=== PATIENT | female | born 1995 | race Caucasian/White ===

== ENCOUNTER 2016-12-18 09:40 | Emergency (ER) | payer SELFPAY ==
--- NOTE | 2016-12-18 10:15 | ED ---
General Adult HPI - General Chief complaint: Upper Respiratory Infection Stated complaint: cough Time Seen by Provider: 12/18/16 10:09 Source: patient, RN notes reviewed Mode of arrival: ambulatory Limitations: no limitations - History of Present Illness Initial comments: Patient 21-year-old female who presents emergency room today with chief complaint of sore throat 3 weeks. He admits that hurts when she swallows. Does admit to cough congestion. Admits to history of asthma. States she recently moved to the area is been out of her medications of inhaler and breathing treatments. Patient denies any other complaints or associated symptoms. Patient denies any recent fever, chills, shortness of breath, chest pain, back pain, abdominal pain, nausea or vomiting, numbness or tingling, dysuria or hematuria, constipation or diarrhea, headaches or visual changes, or any other complaints. - Related Data Previous Rx's Medication Instructions Recorded Albuterol Inhaler [Ventolin Hfa 1 - 2 puff INHALATION Q4-6H PRN #1 12/18/16 Inhaler] inhaler guaiFENesin 400 mg PO Q4-6H #30 tablet 12/18/16 Allergies Allergy/AdvReac Type Severity Reaction Status Date / Time coconut Allergy Unknown Verified 12/18/16 10:10 Review of Systems ROS Statement: Those systems with pertinent positive or pertinent negative responses have been documented in the HPI. ROS Other: All systems not noted in ROS Statement are negative. Past Medical History Past Medical History: Asthma History of Any Multi-Drug Resistant Organisms: None Reported Past Surgical History: No Surgical Hx Reported Past Psychological History: No Psychological Hx Reported Smoking Status: Current every day smoker Past Alcohol Use History: None Reported Past Drug Use History: Marijuana General Exam - General Exam Comments Initial Comments: General: The patient is awake and alert, in no distress, and does not appear acutely ill. Eye: Pupils are equal, round and reactive to light, extra-ocular movements are intact. No nystagmus. There is normal conjunctiva bilaterally. No signs of icterus. Ears, nose, mouth and throat: There are moist mucous membranes and no oral lesions. Mild redness to the posterior pharynx. Neck: The neck is supple, there is no tenderness or JVD. Cardiovascular: There is a regular rate and rhythm. No murmur, rub or gallop is appreciated. Respiratory: Lungs are clear to auscultation, respirations are non-labored, breath sounds are equal. No wheezes, stridor, rales, or rhonchi. Musculoskeletal: Normal ROM, no tenderness. Strength 5/5. Sensation intact. Pulses equal bilaterally 2+. Neurological: A&O x 3. CN II-XII intact, There are no obvious motor or sensory deficits. Coordination appears grossly intact. Speech is normal. Skin: Skin is warm and dry and no rashes or lesions are noted. Psychiatric: Cooperative, appropriate mood & affect, normal judgment. Limitations: no limitations Course Vital Signs 12/18/16 12/18/16 09:43 09:56 Temperature 97.8 F Pulse Rate 102 H Respiratory 20 20 Rate Blood Pressure 140/84 O2 Sat by Pulse 100 Oximetry Medical Decision Making - Medical Decision Making Patient's x-ray reviewed no sign of pneumonia. No other acute abnormalities. Results were discussed with patient. Patient's strep test negative. Patient was most likely viral illness. Does have history of asthma. Will be written a prescription for albuterol inhaler with cough medication. Advised follow-up family doctor return here to the emergency room if any symptoms increase or worsen or for new concerns. - Lab Data Lab Results 12/18/16 Range/Units 10:23 Group A Strep Rapid Negative (Negative) Disposition Clinical Impression: Upper respiratory infection Disposition: HOME SELF-CARE Condition: Good Instructions: Upper Respiratory Infection (ED) Additional Instructions: Please use medication as discussed. Please follow-up with family doctor in the next 2 days of symptoms have not improved. Please return to emergency room if the symptoms increase or worsen or for any other concerns. Prescriptions: Albuterol Inhaler [Ventolin Hfa Inhaler] 1 - 2 puff INHALATION Q4-6H PRN #1 inhaler PRN Reason: Cough guaiFENesin 400 mg PO Q4-6H #30 tablet Referrals: None,Stated [Primary Care Provider] - 1-2 days Angela Moore MD [REFERRING] - 1-2 days Time of Disposition: 11:05
--- NOTE | 2016-12-18 10:45 | XR ---
EXAMINATION TYPE: XR chest 2V DATE OF EXAM: 12/18/2016 10:35 AM COMPARISON: NONE TECHNIQUE: PA and lateral views submitted. HISTORY: Cough FINDINGS: The lungs are clear and there is no pneumothorax, pleural effusion, or focal pneumonia. IMPRESSION: 1. No acute process.
[2016-12-18 17:43] VITALS: BP 139/68; PULSE 78; RESP 18; TEMP 98.4
== END 2016-12-18 11:37 | disposition home or self-care (01) ==
LOC: EC 09:40
DX: J06.9 Acute upper respiratory infection, unspecified (principal); Z91.018 Allergy to other foods; F17.200 Nicotine dependence, unspecified, uncomplicated
CPT/HCPCS: 71020; 87081; 87430; 99283

== ENCOUNTER 2017-01-30 21:31 | Emergency (ER) | payer OTHER ==
[2017-01-30 21:35] VITALS: BP 137/69; PULSE 90; RESP 18; TEMP 97.9
--- NOTE | 2017-01-30 21:54 | ED ---
Upper Extremity HPI - General Chief Complaint: Extremity Injury, Upper Stated Complaint: rt wrist injury Time Seen by Provider: 01/30/17 21:38 Source: patient, RN notes reviewed Mode of arrival: ambulatory Limitations: no limitations - History of Present Illness Initial Comments: Patient is a 21-year-old female presents to the emergency room for evaluation of right wrist pain. Patient states a few days ago she was punching objects and began having wrist pain afterwards. Patient states throughout the past few days she's been having on and off swelling and bruising of her right wrist. Patient states she has pain whenever she lifts heavy objects or moves her wrist. Patient states she is having some pain in her knuckles as well. Patient denies numbness or tingling in her fingers. Patient denies any other injuries or complaints. - Related Data Home Medications Medication Instructions Recorded Confirmed ARIPiprazole [Abilify] 5 mg PO DAILY 01/30/17 01/30/17 Omeprazole 40 mg PO DAILY 01/30/17 01/30/17 busPIRone HCl [Buspar] 10 mg PO BID 01/30/17 01/30/17 Allergies Allergy/AdvReac Type Severity Reaction Status Date / Time coconut Allergy Rash/Hives Verified 01/30/17 21:42 Review of Systems ROS Statement: Those systems with pertinent positive or pertinent negative responses have been documented in the HPI. ROS Other: All systems not noted in ROS Statement are negative. Past Medical History Past Medical History: Asthma History of Any Multi-Drug Resistant Organisms: None Reported Past Surgical History: No Surgical Hx Reported Past Psychological History: No Psychological Hx Reported Smoking Status: Current every day smoker Past Alcohol Use History: None Reported Past Drug Use History: Marijuana General Exam - General Exam Comments Initial Comments: Sitting in exam room, no acute distress. Limitations: no limitations General appearance: alert, in no apparent distress Head exam: Present: atraumatic, normocephalic, normal inspection Eye exam: Present: normal appearance ENT exam: Present: normal exam Neck exam: Present: normal inspection Respiratory exam: Absent: respiratory distress Right Forearm Wrist exam: Present: full ROM, tenderness (Distal ulna), swelling ( Swelling and ecchymosis over distal ulna) Hand Wrist exam: Present: full ROM, tenderness (Tenderness on palpating over fourth and fifth MCP joints) Vascular: Present: normal capillary refill (Capillary refill less than 2 seconds ), radial pulse (2+), ulnar pulse (2+) Back exam: Present: normal inspection Neurological exam: Present: alert, oriented X3, CN II-XII intact, normal gait Psychiatric exam: Present: normal affect, normal mood Skin exam: Present: warm, dry, intact, normal color. Absent: rash Course Vital Signs 01/30/17 21:33 Temperature 97.9 F Pulse Rate 90 Respiratory 18 Rate Blood Pressure 137/69 O2 Sat by Pulse 99 Oximetry Procedures - Orthopedic Splinting/Casting Injury #1 Side: right Upper Extremity Injury Location: wrist Upper Extremity Immobilizer: Robbin wrap Medical Decision Making - Medical Decision Making Patient is a 21-year-old female presents emergency room for evaluation of right wrist pain. Right wrist/hand x-ray shows no acute fractures or dislocations. Patient placed in an Robbin wrap. Advised patient to follow-up with her primary care provider if symptoms are not improving in 7-10 days. Patient states she understands everything that was discussed with her. Return parameters discussed. Case discussed Dr. Augustin. - Radiology Data Radiology results: report reviewed, image reviewed Disposition Clinical Impression: Right wrist sprain Disposition: HOME SELF-CARE Condition: Good Instructions: Wrist Sprain (ED) Additional Instructions: Ice on and off for 10-15 minutes for the next 24-48 hours. Tylenol or Motrin as needed for pain. Please follow-up with primary care provider is 7-10 days if symptoms are not improving. If new symptoms develop or symptoms worsen, please return to the ER. Referrals: Dennise Mo MD [Primary Care Provider] - 1-2 days Time of Disposition: 22:18
--- NOTE | 2017-01-30 22:05 | XR ---
EXAMINATION TYPE: XR hand complete RT DATE OF EXAM: 01/30/2017 9:58 PM COMPARISON: NONE HISTORY: Pain TECHNIQUE: 3 views FINDINGS: I see no fracture nor dislocation. Metacarpals appear intact. IMPRESSION: Negative right hand exam.
--- NOTE | 2017-01-30 22:06 | XR ---
EXAMINATION TYPE: XR wrist complete RT DATE OF EXAM: 01/30/2017 9:59 PM COMPARISON: NONE HISTORY: Pain TECHNIQUE: 4 views FINDINGS: I see no fracture nor dislocation. Carpal bones appear intact. IMPRESSION: Negative right wrist exam.
== END 2017-01-30 22:43 | disposition home or self-care (01) ==
LOC: EC 21:31
DX: S63.501A Unspecified sprain of right wrist, initial encounter (principal); F17.200 Nicotine dependence, unspecified, uncomplicated; Z79.899 Other long term (current) drug therapy; Z91.018 Allergy to other foods; W22.8XXA Striking against or struck by other objects, initial encounter
CPT/HCPCS: 99283

== ENCOUNTER 2017-02-02 10:34 | Emergency (ER) | payer OTHER ==
[2017-02-02 10:40] VITALS: RESP 16
--- NOTE | 2017-02-02 11:44 | ED ---
General Adult HPI - General Chief complaint: Wound/Laceration Stated complaint: laceration Time Seen by Provider: 02/02/17 10:42 Source: patient, RN notes reviewed, old records reviewed Mode of arrival: ambulatory Limitations: no limitations - History of Present Illness Initial comments: 21-year-old female with history of bipolar depression presenting for lacerations to her anterior thighs. Patient states that she has a history of cutting herself related to stress and anxiety. She states that today she felt stressed out and cut herself with a razor blade multiple times on both thighs. States that she took her medication after that and now she is feeling improved. She denies any suicidal ideations. She states that she cut herself too deep on one of the wounds so she came to the emergency room to get the laceration evaluated. States that she recently switched psychiatrists about a week ago and was restarted on her medications 5 days ago. She states that she is compliant with these medications. She states his follow-up appointment later this week. - Related Data Home Medications Medication Instructions Recorded Confirmed ARIPiprazole [Abilify] 5 mg PO DAILY 01/30/17 02/02/17 Omeprazole 40 mg PO DAILY 01/30/17 02/02/17 busPIRone HCl [Buspar] 10 mg PO BID 01/30/17 02/02/17 Allergies Allergy/AdvReac Type Severity Reaction Status Date / Time coconut Allergy Rash/Hives Verified 02/02/17 11:02 Review of Systems ROS Statement: Those systems with pertinent positive or pertinent negative responses have been documented in the HPI. ROS Other: All systems not noted in ROS Statement are negative. Past Medical History Past Medical History: Asthma History of Any Multi-Drug Resistant Organisms: None Reported Past Surgical History: No Surgical Hx Reported Past Psychological History: Anxiety, Bipolar, Depression Smoking Status: Current every day smoker Past Alcohol Use History: None Reported Past Drug Use History: Marijuana General Exam - General Exam Comments Initial Comments: General: Awake and Alert. No acute distress. Does not appear acutely ill. Eyes: RACHEL, EOM intact. No nystagmus. No scleral icterus. HENT: Atraumatic, normocephalic. Mucous membranes moist. Trachea midline. Neck: The neck is supple, there is no tenderness or JVD. Cardiovascular: Regular rate and rhythm. No murmur, rub, or gallop is appreciated. Distal pulses intact. Respiratory: Lungs are clear to auscultation bilaterally. No wheezes, rales, rhonchi. No respiratory distress. Gastrointestinal: Soft, Nontender. No rebound or guarding. Non-distended. No masses or organomegaly noted. No CVA tenderness. Musculoskeletal: No tenderness. Normal ROM. No gross deformity. No strength deficits. Neurological: A&Ox3. CN II-XII grossly intact, There are no obvious motor or sensory deficits. Coordination appears grossly intact. Speech is normal. Skin: There are multiple horizontal lacerations to bilateral anterior thigh. The right anterior thigh has a deeper laceration that is approximately 5 cm x 0.5 cm. There are also areas of scabbed over prior lacerations to the same area. Skin is warm and dry and no rashes are noted. Psychiatric: Cooperative, appropriate affect. Pt appears anxious. Denies suicidal ideations or plan. Limitations: no limitations Course Vital Signs 02/02/17 02/02/17 10:35 12:40 Temperature 99.8 F H 97.8 F Pulse Rate 113 H 82 Respiratory 16 16 Rate Blood Pressure 144/83 123/65 O2 Sat by Pulse 97 99 Oximetry Procedures - Laceration Laceration #1 Consent Obtained: verbal consent Time Out Performed: Yes Indication: laceration Site: lower extremity Size (cm): 5 Description: linear Depth: simple, single layer Anesthetic Used: lidocaine 1% Anesthesia Technique: local infiltration Amount (mls): 5 Type of Sutures: nylon Size of Sutures: 4-0 Number of Sutures: 8 Technique: simple, interrupted Patient Tolerated Procedure: no complications Medical Decision Making - Medical Decision Making 21-year-old female presenting for lacerations to anterior thighs bilaterally. His one larger laceration of the right anterior thigh which was repaired with 8 sutures. She tolerated this well. Remaining lacerations were more superficial but were closed with Dermabond. Discussed wound care instructions. Patient was asked multiple times if she is feeling suicidal or depressed, patient states she is not. She states she does not plan to cut again at this time. She states she was recently restarted on her medications. States she felt better after she took medications this morning. She was offered to meet with our bilingual social worker, but declines. Given that she is feeling improved at this time and is compliant with her medications, she does not appear to require petition/clinical certificate/psychiatric evaluation. Patient states she does have follow-up with her psychiatrist later this week. Discussed concerning signs symptoms for immediate return to the ER. Patient is agreeable with plan and discharge home. Disposition Clinical Impression: Laceration of thigh, Bipolar depression Disposition: HOME SELF-CARE Condition: Stable Instructions: Laceration (ED) Additional Instructions: Please keep wounds clean and dry. You may use topical antibiotic cream if they become red or irritated. Please follow up for removal of sutures in 1 week. If you become depress or feel like cutting again, please call 911 or your psychiatrist. Referrals: Dennise Mo MD [Primary Care Provider] - 1-2 days Time of Disposition: 12:13
[2017-02-02] MEDS ORDERED: TOPICAL SKIN ADHESIVE 1 EACH AMP TOPICAL ONE (12:01)
[2017-02-02 12:48] VITALS: BP 123/65; PULSE 82; TEMP 97.8
== END 2017-02-02 12:40 | disposition home or self-care (01) ==
LOC: EC 10:34
DX: S71.112A Laceration without foreign body, left thigh, initial encounter (principal); S71.111A Laceration without foreign body, right thigh, initial encounter; F31.9 Bipolar disorder, unspecified; F41.9 Anxiety disorder, unspecified; F17.200 Nicotine dependence, unspecified, uncomplicated; Z79.899 Other long term (current) drug therapy; Z91.018 Allergy to other foods; W45.8XXA Other foreign body or object entering through skin, initial encounter
CPT/HCPCS: 12002; 99283

== ENCOUNTER → 2017-03-02 | Day surgery (SDC) | payer OTHER ==
[2017-02-26 10:56] VITALS: BMI 23.6
[~2017-03-02] MED LIST: LACTATED RINGERS 1,000 ML IV SCH; LIDOCAINE 1% 20 ML VIAL (10MG/ML) FOR IV START INTRADERMA ONE; LIDOCAINE 1% INJ 10MG/ML (20 ML MDV) ONE; PROPOFOL 10 MG/ML 20 ML VIAL IV ONE
[2017-03-02 07:55] VITALS: TEMP 98
--- NOTE | 2017-03-02 08:58 | P.GSHP ---
History of Present Illness H&P Date: 03/02/17 Chief Complaint: Epigastric and right upper quadrant pain This is a 21-year-old female who presents today for EGD. She's had complaints of right quadrant and epigastric pain. - Constitutional Constitutional: Reports as per HPI Past Medical History Past Medical History: Asthma, Pulmonary Embolus (PE) Additional Past Medical History / Comment(s): persistant vomiting 1 1/2 yrs- daily, occ abdominal pain, History of Any Multi-Drug Resistant Organisms: None Reported Past Surgical History: Orthopedic Surgery Additional Past Surgical History / Comment(s): surgery left knee, Past Anesthesia/Blood Transfusion Reactions: No Reported Reaction Past Psychological History: Anxiety, Bipolar, Depression, Panic Disorder Smoking Status: Current every day smoker Past Alcohol Use History: None Reported Additional Past Alcohol Use History / Comment(s): has smoked since age 12, 1 1/ 2 PPD Past Drug Use History: Marijuana Additional Drug Use History / Comment(s): daily - Past Family History Mother Family Medical History: No Reported History Medications and Allergies Home Medications Medication Instructions Recorded Confirmed Type busPIRone HCl [Buspar] 10 mg PO BID 01/30/17 02/26/17 History ARIPiprazole [Abilify] 10 mg PO DAILY 02/26/17 02/26/17 History Albuterol Inhaler [Ventolin Hfa 1 - 2 puff INHALATION TID 02/26/17 03/02/17 History Inhaler] lamoTRIgine [LaMICtal] 100 mg PO DAILY 02/26/17 03/02/17 History Allergies Allergy/AdvReac Type Severity Reaction Status Date / Time coconut Allergy Rash/Hives, Verified 02/26/17 10:48 tongue swelling Surgical - Exam Vital Signs Temp Pulse Resp BP Pulse Ox 98.0 F 68 18 129/84 100 03/02/17 07:53 03/02/17 07:53 03/02/17 07:53 03/02/17 07:53 03/02/17 07:53 - General well developed, no distress - Eyes PERRL - ENT normal pinna - Neck no masses - Respiratory normal expansion - Cardiovascular Rhythm: regular - Abdomen Mild epigastric pain Abdomen: soft Assessment and Plan Plan: Epigastric right upper quadrant pain. We'll perform EGD to evaluate for gastritis.
--- NOTE | 2017-03-02 09:06 | P.OP ---
Date of Procedure: 03/02/17 Preoperative Diagnosis: Epigastric and right upper quadrant pain Postoperative Diagnosis: Mild gastritis Procedure(s) Performed: EGD Anesthesia: MAC Surgeon: Brain Peters Pathology: other (Antrum, esophagus) Condition: stable Disposition: PACU Description of Procedure: The patient's placed on the endoscopy table in the lateral position. She received IV sedation. The gastroscope placed oropharynx and passed in the esophagus and into the stomach. Scope was then placed through the pylorus. The first and second portion of the duodenum appeared normal. The scope was then brought back the antrum and this appeared mildly inflamed. A biopsy was performed. The scope was unretroflexed and remainder of the stomach appeared normal. There was no hiatal hernia. The GE junction was at 40 cm. The distal esophagus appeared minimally inflamed a biopsies was performed. The proximal esophagus appeared normal. Scope was withdrawn for patient.
[2017-03-02 09:40] VITALS: BP 137/60; PULSE 75; RESP 18
--- NOTE | 2017-03-02 13:11 | NM ---
EXAMINATION TYPE: NM hepatobiliary w EF DATE OF EXAM: 03/02/2017 12:33 PM COMPARISON: NONE HISTORY: Abdominal pain not further specified per order. Epigastric pain with diminished appetite, na usea, vomiting, and reflux-like symptoms. TECHNIQUE: After the intravenous administration of 5.5 mCi Tc 99m Mebrofenin hepatobiliary scintigrap hy is performed. Immediate images post injection. FINDINGS: There is satisfactory initial accumulation of tracer by the liver. The gallbladder is visualized wit hin 20 minutes. The small bowel activity is noted within 15 minutes. At one hour 8 ounces of oral e nsure plus is given to mimic CCK and gallbladder ejection fraction is calculated at 97 %, not diminis hed from the normal range. Therefore there is no scintigraphic evidence of cystic or common bile gonzales t obstruction to suggest acute cholecystitis. Some consider ejection fraction of 97% abnormal or a hy perkinetic response. IMPRESSION: Ejection fraction is 97%, some consider this abnormal or a hyperkinetic response. Clinica l correlation advised.
== END | disposition home or self-care (01) ==
LOC: ORWHC2ENDO 07:28
PROVIDERS: ATTEND Surgery
DX: K29.50 Unspecified chronic gastritis without bleeding (principal); K20.0 Eosinophilic esophagitis; J45.909 Unspecified asthma, uncomplicated; F17.200 Nicotine dependence, unspecified, uncomplicated; F41.9 Anxiety disorder, unspecified; F31.9 Bipolar disorder, unspecified; F32.9 Major depressive disorder, single episode, unspecified; F41.0 Panic disorder [episodic paroxysmal anxiety]; Z86.711 Personal history of pulmonary embolism; Z91.018 Allergy to other foods; Z79.899 Other long term (current) drug therapy
CPT/HCPCS: 81025; 88305; 88312; 88342; 78226; 43239; A9537; J2001; J2704

== ENCOUNTER 2017-03-27 06:15 | Day surgery (SDC) | payer OTHER ==
[2017-03-26 08:33] VITALS: BMI 25.5
[~2017-03-27 06:15] MED LIST changes: +DEXAMETHASONE SOD PHOSPHATE 10 MG/ML 1 ML VIAL IV ONE; +HEPARIN SODIUM,PORCINE 5,000 UNIT/ML 1 ML VIAL SQ ONE; -LIDOCAINE 1% 20 ML VIAL (10MG/ML) FOR IV START INTRADERMA ONE; +LIDOCAINE 1% 20 ML VIAL (10MG/ML) FOR IV START INTRADERMA PRN; -LIDOCAINE 1% INJ 10MG/ML (20 ML MDV) ONE; +MIDAZOLAM 2 MG/2 ML VIAL IV PRN; +ONDANSETRON 4 MG/2 ML VIAL IVP ONE; -PROPOFOL 10 MG/ML 20 ML VIAL IV ONE; +SCOPOLAMINE 1.5MG/72HR PATCH TRANSDERM ONE; +ceFAZolin 2 GM in SODIUM CHLORIDE 0.9% 100 ML IVPB ONE
[2017-03-27 06:37] VITALS: RESP 18
[2017-03-27] MEDS ORDERED: LACTATED RINGERS 1,000 ML IV ONE ×2 (06:44→10:33)
[2017-03-27] MEDS ORDERED: BUPIVACAIN-EPI 0.25%-1:200,000 30 ML VIAL SQ ONE (07:18)
--- NOTE | 2017-03-27 07:51 | P.GSHP ---
History of Present Illness H&P Date: 03/27/17 Chief Complaint: Right upper quadrant pain This a 19-year-old female referred from Dr. pyle. Patient presents today for laparoscopic cholecystectomy. She's had abdominal pain her HIDA scan shows abnormal ejection fraction consistent with chronic cholecystitis. Past Medical History Past Medical History: Asthma, Pulmonary Embolus (PE) Additional Past Medical History / Comment(s): persistant vomiting 1 1/2 yrs- daily, occ abdominal pain, History of Any Multi-Drug Resistant Organisms: None Reported Past Surgical History: Orthopedic Surgery Additional Past Surgical History / Comment(s): LEFT KNEE SURGERY WITH SCREWS, Past Anesthesia/Blood Transfusion Reactions: No Reported Reaction Past Psychological History: Anxiety, Bipolar, Depression, Panic Disorder Smoking Status: Current every day smoker Past Alcohol Use History: None Reported, Rare Additional Past Alcohol Use History / Comment(s): has smoked since age 12, SMOKES 1 1/2PPD Past Drug Use History: Marijuana Additional Drug Use History / Comment(s): daily - Past Family History Mother Family Medical History: No Reported History Medications and Allergies Home Medications Medication Instructions Recorded Confirmed Type busPIRone HCl [Buspar] 10 mg PO BID 01/30/17 03/26/17 History ARIPiprazole [Abilify] 10 mg PO DAILY 02/26/17 03/26/17 History Albuterol Inhaler [Ventolin Hfa 1 - 2 puff INHALATION TID PRN 02/26/17 03/27/17 History Inhaler] lamoTRIgine [LaMICtal] 100 mg PO BID 02/26/17 03/26/17 History Allergies Allergy/AdvReac Type Severity Reaction Status Date / Time coconut Allergy Rash/Hives, Verified 03/26/17 08:14 tongue swelling Surgical - Exam Vital Signs Temp Pulse Resp BP Pulse Ox 98.1 F 74 18 112/65 99 03/27/17 06:34 03/27/17 06:34 03/27/17 06:34 03/27/17 06:34 03/27/17 06:34 - General well developed, no distress - Eyes PERRL - ENT normal pinna - Neck no masses - Respiratory normal expansion - Cardiovascular Rhythm: regular - Abdomen Abdomen: soft, non tender Assessment and Plan Plan: Right upper quadrant pain Chronic cholecystis We'll perform laparoscopic cholecystectomy
[2017-03-27] MEDS ORDERED: GLYCOPYRROLATE 0.2 MG/ML 2 ML VIAL ONE (07:57)
[2017-03-27] MEDS ORDERED: NEOSTIGMINE 1 MG/ML 10 ML VIAL ONE (07:57)
[2017-03-27] MEDS ORDERED: KETOROLAC 30 MG/ML 1 ML VIAL ONE (07:57)
[2017-03-27] MEDS ORDERED: MIDAZOLAM 2 MG/2 ML VIAL ONE (07:57)
[2017-03-27] MEDS ORDERED: PROPOFOL 10 MG/ML 20 ML VIAL IV ONE (07:57)
[2017-03-27] MEDS ORDERED: SUCCINYLCHOLINE CHLORIDE 100 MG/5 ML SYR IV ONE (07:57)
[2017-03-27] MEDS ORDERED: ROCURONIUM BROMIDE 10 MG/ML 10 ML VIAL IV ONE (07:57)
[2017-03-27] MEDS ORDERED: HYDROmorphone (PF) 1 MG/ML ONE (07:57)
[2017-03-27] MEDS ORDERED: LIDOCAINE 1% INJ 10MG/ML (20 ML MDV) ONE (07:57)
[2017-03-27] MEDS ORDERED: fentaNYL (PF) 50 MCG/ML 2 ML AMP ONE (07:57)
--- NOTE | 2017-03-27 08:43 | P.OP ---
Date of Procedure: 03/27/17 Preoperative Diagnosis: Cholecystitis Postoperative Diagnosis: Cholecystitis Procedure(s) Performed: Laparoscopic cholecystectomy Implants: Anesthesia: VANCE Surgeon: Brain Peters Estimated Blood Loss (ml): 5 Pathology: other (Gallbladder) Condition: stable Disposition: PACU Indications for Procedure: Operative Findings: Description of Procedure: The patient was placed on the operating table. The patient received a general endotracheal tube anesthesia. The patients abdomen was prepped and draped in the usual sterile fashion. Through an infraumbilical stab incision, the fascia of the anterior abdominal wall was grasped with a pair of Kochers and then the Veress needle was placed in the peritoneal cavity. Position of the Veress needle was confirmed with positive drop test. The abdomen was then insufflated. After adequate insufflation, the 10 mm trocar was placed in the peritoneal cavity. Following this the laparoscope was placed in the peritoneal cavity. The patient was placed in the head-up, right side up position and then a 5 mm trocar was placed in the right lateral and right subcostal position under direct visualization. A 8 mm trocar was placed in the epigastric position. The gallbladder was grasped in the fundus and infundibulum. Traction on the gallbladder was placed in the lateral and the cephalad positions. The triangle of Calot was visualized.. The cystic duct was bluntly dissected until the union of the cystic duct and common bile duct was seen. The cystic duct was then divided and sealed with the Harmonic scissors. A PDS Endoloop was then placed throughout the cystic duct stump. The cystic artery divided and sealed with the Harmonic scissors. The gallbladder was then removed from the liver bed using Harmonic scissors. The gallbladder was then extracted through the epigastric port site. Operative field was checked for any bleeding spots and Harmonic scissors was used to coagulate the liver bed. The abdomen was irrigated. The trocars were removed. The skin was closed using interrupted 3-0 Vicryl suture. Dermabond dressing were applied. The patient tolerated the procedure well.
[2017-03-27 09:03] VITALS: TEMP 997.4
[2017-03-27] MEDS: HYDROmorphone 1 MG/ML 1 ML SYRINGE IVP PRN ×4 (09:10→09:35)
[2017-03-27] MEDS ORDERED: ONDANSETRON 4 MG/2 ML VIAL IVP ONE (09:26)
[2017-03-27 11:38] VITALS: BP 131/64; PULSE 71
== END 2017-03-27 12:03 | disposition home or self-care (01) ==
LOC: OR 06:15
PROVIDERS: ATTEND Surgery
DX: K81.1 Chronic cholecystitis (principal); K76.89 Other specified diseases of liver; J45.909 Unspecified asthma, uncomplicated; Z86.711 Personal history of pulmonary embolism; F41.9 Anxiety disorder, unspecified; F31.9 Bipolar disorder, unspecified; F41.0 Panic disorder [episodic paroxysmal anxiety]; F17.200 Nicotine dependence, unspecified, uncomplicated; Z79.899 Other long term (current) drug therapy; Z91.018 Allergy to other foods
CPT/HCPCS: 81025; 88304; 47562; J2250; J1644; J1100; J2710; J0690; J2405; J2001; J3010; J1885; J1170; J0330; J2704

== ENCOUNTER 2017-04-02 10:58 | Emergency (ER) | payer OTHER ==
--- NOTE | 2017-04-02 11:34 | ED ---
Abdominal Pain HPI - General Chief Complaint: Abdominal Pain Stated Complaint: POST OP PAIN GALLBLADDER Time Seen by Provider: 04/02/17 11:16 Source: patient, family Mode of arrival: wheelchair Limitations: no limitations - History of Present Illness Initial Comments: This 21-year-old white female presents complaining of some abdominal pain as well as nausea and vomiting which started shortly prior to arrival. She states that the abdominal pain is diffuse and severe. She had several episodes of vomiting which was fairly violent and had some specks of blood in the vomitus. She also relates having a slight amount of blood in her stool approximately 5 days ago. She is 7 days out of a laparoscopic cholecystectomy. She denies any fevers or chills. No other complaints or modifying factors. - Related Data Home Medications Medication Instructions Recorded Confirmed busPIRone HCl [Buspar] 10 mg PO BID 01/30/17 04/02/17 ARIPiprazole [Abilify] 10 mg PO DAILY 02/26/17 04/02/17 Albuterol Inhaler [Ventolin Hfa 1 - 2 puff INHALATION RT-TID PRN 02/26/17 Inhaler] lamoTRIgine [LaMICtal] 100 mg PO BID 02/26/17 04/02/17 HYDROcodone/APAP 7.5-325MG [[place] 1 tab PO Q4H PRN 04/02/17 04/02/17 7.5] traZODone HCL 50 mg PO HS 04/02/17 04/02/17 Previous Rx's Medication Instructions Recorded Docusate [Colace] 100 mg PO BID #20 capsule 03/27/17 Acetaminophen-Codeine 300-30mg 1 tab PO Q6H PRN #15 tablet 04/02/17 [Tylenol w/codeine #3] Famotidine [Pepcid] 20 mg PO BID #20 tablet 04/02/17 Ondansetron Odt [Zofran ODT] 8 mg PO Q8HR PRN #10 tab 04/02/17 Allergies Allergy/AdvReac Type Severity Reaction Status Date / Time coconut Allergy Rash/Hives, Verified 04/02/17 11:18 tongue swelling Review of Systems ROS Statement: Those systems with pertinent positive or pertinent negative responses have been documented in the HPI. ROS Other: All systems not noted in ROS Statement are negative. Past Medical History Past Medical History: Asthma, Pulmonary Embolus (PE) Additional Past Medical History / Comment(s): persistant vomiting 1 1/2 yrs- daily, occ abdominal pain, History of Any Multi-Drug Resistant Organisms: None Reported Past Surgical History: Cholecystectomy, Orthopedic Surgery Additional Past Surgical History / Comment(s): LEFT KNEE SURGERY WITH SCREWS, Past Anesthesia/Blood Transfusion Reactions: No Reported Reaction Past Psychological History: Anxiety, Bipolar, Depression, Panic Disorder Smoking Status: Current every day smoker Past Alcohol Use History: None Reported, Rare Additional Past Alcohol Use History / Comment(s): has smoked since age 12, SMOKES 1 1/2PPD Past Drug Use History: Marijuana Additional Drug Use History / Comment(s): daily - Past Family History Mother Family Medical History: No Reported History General Exam - General Exam Comments Initial Comments: GENERAL: The patient is well nourished and well hydrated. VITAL SIGNS: Heart rate, blood pressure, respiratory rate reviewed as recorded in nurse's notes. EYES: Pupils are round and reactive. Extraocular movements are intact. No conjunctival / lid redness or swelling. ENT: No external evidence of injury, swelling, or ecchymosis. Airway is patent. Throat is clear. NECK: Nontender. No swelling or evidence of injury. No subcutaneous emphysema. Trachea is midline. No thyroid mass. HEART: Regular rate and rhythm. Good peripheral pulses. LUNGS/CHEST: Breath sounds clear and equal bilaterally. No rales, rhonchi, or wheezes. No ecchymosis, subcutaneous emphysema, or tenderness. ABDOMEN: There is mild diffuse tenderness. The abdomen is soft. There is no flank tenderness. There is well-healing laparoscopic cholecystectomy scars. No evidence of infection. No palpable masses or organomegaly. No peritoneal signs. No abdominal wall swelling or ecchymosis. EXTREMITIES: No extremity tenderness. Normal muscle tone and function. No thoracolumbar tenderness. NEUROLOGIC: Sensation is grossly intact. Cranial nerve exam reveals face is symmetrical, tongue is midline, speech is clear. SKIN: No abrasions or ecchymosis is noted. No induration or masses noted. PSYCHIATRIC: Alert and oriented. Appropriate behavior and judgment. Limitations: no limitations Course Vital Signs 04/02/17 04/02/17 10:59 13:51 Temperature 98.7 F 98.5 F Pulse Rate 92 87 Respiratory 28 H 18 Rate Blood Pressure 158/108 120/53 O2 Sat by Pulse 100 98 Oximetry Medical Decision Making - Medical Decision Making The patient was seen and examined. All diagnostics were reviewed. An IV is started and she received Zofran and morphine intravenously. She is hydrated. Old records are reviewed. The laboratory shows a quite stable hemoglobin. All labs are essentially within normal limits. The urinalysis does show some hematuria but the patient is on her period. The specific gravity is elevated consistent with dehydration and she was further hydrated. The computed tomography scan does show some fluid in the abdomen but this is likely post surgically related. The radiologist requests to correlate for a pyelonephritis. She does not have symptomatology consistent with a pyelonephritis. She states that she has been taking her [place] for pain and is almost out of this medication. On recheck, she had just ate a muffin and also was able to drink some water without any problems. She is in no distress on recheck. The exact cause of her symptomatology is not definitively determined. The possibility of a gastritis certainly is possible and she will be treated for this. Case was discussed with Dr. Peters and he is agreeable with discharge. - Lab Data Result diagrams: 04/02/17 11:29 04/02/17 11:29 Lab Results 04/02/17 04/02/17 04/02/17 Range/Units 11:29 11:29 11:58 WBC 8.7 (3.8-10.6) k/uL RBC 4.97 (3.80-5.40) m/uL Hgb 15.4 (11.4-16.0) gm/dL Hct 45.0 (34.0-46.0) % MCV 90.6 (80.0-100.0) fL MCH 30.9 (25.0-35.0) pg MCHC 34.1 (31.0-37.0) g/dL RDW 12.8 (11.5-15.5) % Plt Count 236 (150-450) k/uL Neutrophils % 61 % Lymphocytes % 28 % Monocytes % 4 % Eosinophils % 4 % Basophils % 0 % Neutrophils # 5.3 (1.3-7.7) k/uL Lymphocytes # 2.4 (1.0-4.8) k/uL Monocytes # 0.4 (0-1.0) k/uL Eosinophils # 0.4 (0-0.7) k/uL Basophils # 0.0 (0-0.2) k/uL PT 10.2 (9.0-12.0) sec INR 1.0 (<1.1) APTT 22.6 (22.0-30.0) sec Sodium 140 (137-145) mmol/L Potassium 4.4 (3.5-5.1) mmol/L Chloride 106 (98-107) mmol/L Carbon Dioxide 23 (22-30) mmol/L Anion Gap 11 mmol/L BUN 19 H (7-17) mg/dL Creatinine 0.84 (0.52-1.04) mg/dL Est GFR (MDRD) Af Amer >60 (>60 ml/min/1.73 sqM) Est GFR (MDRD) Non-Af >60 (>60 ml/min/1.73 sqM) Glucose 98 (74-99) mg/dL Calcium 9.4 (8.4-10.2) mg/dL Total Bilirubin 0.5 (0.2-1.3) mg/dL AST 24 (14-36) U/L ALT 38 (9-52) U/L Alkaline Phosphatase 47 (38-126) U/L Total Protein 7.5 (6.3-8.2) g/dL Albumin 4.6 (3.5-5.0) g/dL Amylase 30 (30-110) U/L Lipase 47 (23-300) U/L Urine Color Urine Appearance (Clear) Urine pH (5.0-8.0) Ur Specific [place] (1.001-1.035) Urine Protein (Negative) Urine Glucose (UA) (Negative) Urine Ketones (Negative) Urine Blood (Negative) Urine Nitrite (Negative) Urine Bilirubin (Negative) Urine Urobilinogen (<2.0) mg/dL Ur Leukocyte Esterase (Negative) Urine RBC (0-5) /hpf Urine WBC (0-5) /hpf Ur Squamous Epith Cells (0-4) /hpf Urine Mucus (None) /hpf Urine HCG, Qual (Not Detectd) 04/02/17 04/02/17 Range/Units 13:01 13:01 WBC (3.8-10.6) k/uL RBC (3.80-5.40) m/uL Hgb (11.4-16.0) gm/dL Hct (34.0-46.0) % MCV (80.0-100.0) fL MCH (25.0-35.0) pg MCHC (31.0-37.0) g/dL RDW (11.5-15.5) % Plt Count (150-450) k/uL Neutrophils % % Lymphocytes % % Monocytes % % Eosinophils % % Basophils % % Neutrophils # (1.3-7.7) k/uL Lymphocytes # (1.0-4.8) k/uL Monocytes # (0-1.0) k/uL Eosinophils # (0-0.7) k/uL Basophils # (0-0.2) k/uL PT (9.0-12.0) sec INR (<1.1) APTT (22.0-30.0) sec Sodium (137-145) mmol/L Potassium (3.5-5.1) mmol/L Chloride (98-107) mmol/L Carbon Dioxide (22-30) mmol/L Anion Gap mmol/L BUN (7-17) mg/dL Creatinine (0.52-1.04) mg/dL Est GFR (MDRD) Af Amer (>60 ml/min/1.73 sqM) Est GFR (MDRD) Non-Af (>60 ml/min/1.73 sqM) Glucose (74-99) mg/dL Calcium (8.4-10.2) mg/dL Total Bilirubin (0.2-1.3) mg/dL AST (14-36) U/L ALT (9-52) U/L Alkaline Phosphatase (38-126) U/L Total Protein (6.3-8.2) g/dL Albumin (3.5-5.0) g/dL Amylase (30-110) U/L Lipase (23-300) U/L Urine Color Yellow Urine Appearance Clear (Clear) Urine pH 6.0 (5.0-8.0) Ur Specific [place] >1.050 H (1.001-1.035) Urine Protein Trace H (Negative) Urine Glucose (UA) Negative (Negative) Urine Ketones Negative (Negative) Urine Blood Large H (Negative) Urine Nitrite Negative (Negative) Urine Bilirubin Negative (Negative) Urine Urobilinogen <2.0 (<2.0) mg/dL Ur Leukocyte Esterase Negative (Negative) Urine RBC 53 H (0-5) /hpf Urine WBC <1 (0-5) /hpf Ur Squamous Epith Cells <1 (0-4) /hpf Urine Mucus Rare H (None) /hpf Urine HCG, Qual Not Detected (Not Detectd) Disposition Clinical Impression: Abdominal pain, Nausea and vomiting, Hematochezia, Status post laparoscopic cholecystectomy, Dehydration Disposition: HOME SELF-CARE Condition: Good Instructions: Abdominal Pain (ED), Acute Nausea and Vomiting (ED), Gastrointestinal Bleeding (ED) Prescriptions: Acetaminophen-Codeine 300-30mg [Tylenol w/codeine #3] 1 tab PO Q6H PRN #15 tablet PRN Reason: Pain Famotidine [Pepcid] 20 mg PO BID #20 tablet Ondansetron Odt [Zofran ODT] 8 mg PO Q8HR PRN #10 tab PRN Reason: Nausea And Vomiting Referrals: Dennise Mo MD [Primary Care Provider] - 1-2 days Brain Peters MD [STAFF PHYSICIAN] - 04/06/17
[2017-04-02] MEDS: ONDANSETRON 4 MG/2 ML VIAL IVP STA (11:49)
[2017-04-02] MEDS: MORPHINE SULFATE 4 MG/ML SYRINGE IV STA (11:51)
[2017-04-02] MEDS: SODIUM CHLORIDE 0.9% 1,000 ML IV STA ×2 (11:52→13:50)
[2017-04-02 11:55] LABS: Basophils % (A) 0 %; CH 30.9; CHCM 34.2; Eosinophils # (A) 0.4 k/uL (0-0.7); Eosinophils % (A) 4 %; HDW 2.16; HGB 15.4 gm/dL (11.4-16.0); Luc # (Auto) 0.18; Luc % (Auto) 2; Lymphocytes # (A) 2.4 k/uL (1.0-4.8); Lymphocytes % (A) 28 %; MCH 30.9 pg (25.0-35.0); MCHC 34.1 g/dL (31.0-37.0); MCV 90.6 fL (80.0-100.0); Mean Platelet Volume 7.7; Monocytes # (A) 0.4 k/uL (0-1.0); Monocytes % (A) 4 %; Neutrophils # (A) 5.3 k/uL (1.3-7.7); Neutrophils % (A) 61 %; RBC 4.97 m/uL (3.80-5.40); RDW 12.8 % (11.5-15.5); WBC 8.7 k/uL (3.8-10.6); WBC (Perox) 8.19
[2017-04-02 12:00] LABS: ALT 38 U/L (9-52); AST 24 U/L (14-36); Alkaline Phosphatase 47 U/L (38-126); Amylase 30 U/L (30-110); Anion Gap 11 mmol/L; Blood Urea Nitrogen 19 mg/dL (7-17); Calcium 9.4 mg/dL (8.4-10.2); Carbon Dioxide 23 mmol/L (22-30); Chloride 106 mmol/L (98-107); Glucose 98 mg/dL (74-99); Non-African American GFR(MDRD) >60 (>60 ml/min/1.73 sqM); Potassium 4.4 mmol/L (3.5-5.1); Sodium 140 mmol/L (137-145); Total Bilirubin 0.5 mg/dL (0.2-1.3); Total Protein 7.5 g/dL (6.3-8.2)
[2017-04-02 12:30] LABS: Partial Thromboplastin Time 22.6 sec (22.0-30.0); Prothrombin Time 10.2 sec (9.0-12.0)
--- NOTE | 2017-04-02 12:41 | CT ---
EXAMINATION TYPE: CT abdomen pelvis w con DATE OF EXAM: 04/02/2017 COMPARISON: HIDA scan 03/02/2017 HISTORY: Right sided abdominal pain since cholecystectomy [address] DLP: 1318 mGycm Automated exposure control for dose reduction was used. TECHNIQUE: Helical acquisition of images from the lung bases through the pelvis have been completed. CONTRAST: Performed without Oral Contrast and with IV Contrast, patient injected with 100 mL of Omnipaque 300. FINDINGS: LUNG BASES: Minimal dependent atelectatic changes are present. No pleural or pericardial effusion. AORTA: No significant abnormality is appreciated. LIVER/GB: Mildly heterogeneous in density. Low dense area within the gallbladder fossa with associate d air density compatible with postcholecystectomy change, small amount of fluid present along the rig ht paracolic gutter and adjacent to the inferior margin of the right lobe of the liver. Minimally pro minent intrahepatic biliary ducts. PANCREAS: No significant abnormality is seen. SPLEEN: No significant abnormality is seen. ADRENALS: No significant abnormality is seen. KIDNEYS: Upper pole left kidney shows some low-attenuation at the cortex, some loss of cortical medul aden differentiation which is asymmetric. REPRODUCTIVE ORGANS: There may be a left ovarian cyst. Free fluid is present within the pelvis BOWEL: Some fluid-filled loops of small bowel are noted. The appendix is normal. FREE AIR: Minimal air present within the subcutaneous fat in the subxiphoid location and anterior to the liver as well as posteriorly near the inferior vena cava is likely postoperative ASCITES: There is some free fluid as described PELVIC ADENOPATHY: None visualized. RETROPERITONEAL ADENOPATHY: No Retroperitoneal Adenopathy visible. URINARY BLADDER: No significant abnormality is seen. OSSEOUS STRUCTURES: No significant abnormality is seen. IMPRESSION: POSTOP FINDINGS. FREE FLUID WITHIN THE PELVIS IS INDETERMINATE. DIFFICULT TO EXCLUDE PYELONEPHRITIS. ADDITIONAL FINDINGS ABOVE, FOLLOW-UP INDICATED.
[2017-04-02] MEDS: RX INFO: IV CONTRAST WAS GIVEN 1 EACH MISC MISCELLANE PRN (12:52)
[2017-04-02 13:16] LABS: Appearance,Urine Clear (Clear); Bilirubin,Urine Negative (Negative); Glucose,Urine (UA) Negative (Negative); Ketones,Urine Negative (Negative); Leukocyte Esterase,Urine Negative (Negative); Mucus,Urine Rare /hpf; Nitrite,Urine Negative (Negative); Particle Count 1591; Protein,Urine Trace (Negative); RBC,Urine 53 /hpf (0-5); Squamous Epithelial Cell,Urine <1 /hpf (0-4); UA Billing (MACRO vs. MICRO) MICRO; Urobilinogen,Urine <2.0 mg/dL (<2.0); WBC,Urine <1 /hpf (0-5)
[2017-04-02 13:17] LABS: Specific Gravity,Urine >1.050 (1.001-1.035)
[2017-04-02] MEDS: MORPHINE SULFATE 2 MG/ML SYRINGE IVP STA (13:50)
[2017-04-02] MEDS: FAMOTIDINE 20 MG/2 ML VIAL IV STA (13:50)
[2017-04-02 14:27] VITALS: BP 118/62; PULSE 59; RESP 17; TEMP 98.7
== END 2017-04-02 14:57 | disposition home or self-care (01) ==
LOC: EC 10:58
DX: K92.1 Melena (principal); E86.0 Dehydration; R11.2 Nausea with vomiting, unspecified; F31.9 Bipolar disorder, unspecified; F41.9 Anxiety disorder, unspecified; F17.200 Nicotine dependence, unspecified, uncomplicated; Z79.899 Other long term (current) drug therapy; Z91.018 Allergy to other foods; Z90.49 Acquired absence of other specified parts of digestive tract
CPT/HCPCS: 36415; 80053; 82150; 83690; 85025; 85610; 85730; 81001; 81025; 74177; 99285; 96374; 96375 ×2; 96376; 96361 ×2; J2270 ×2; J2405; Q9967

== ENCOUNTER 2017-04-04 13:36 | Inpatient (IN) | payer MEDICAID, OTHER ==
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
[2017-04-04] MEDS ORDERED: NICOTINE 14MG/24HR PATCH TRANSDERM STA (14:52)
[2017-04-04] MEDS ORDERED: MAG HYDROX/AL HYDROX/SIMETH 30 ML CUP PO PRN (15:29)
[2017-04-04] MEDS ORDERED: MAGNESIUM HYDROXIDE 2,400 MG/10 ML CUP PO PRN (15:29)
[2017-04-04] MEDS ORDERED: ACETAMINOPHEN TAB 325 MG TAB PO PRN (15:29)
[2017-04-04] MEDS ORDERED: ONDANSETRON ODT 4 MG TAB PO PRN (15:30)
[2017-04-04] MEDS ORDERED: OLANZapine 5 MG TAB PO PRN (15:59)
[2017-04-04] MEDS: ALBUTEROL INHALER 60 PUFF/8 GM INHALER INHALATION PRN (21:01)
[2017-04-04] MEDS: DOCUSATE 100 MG CAP PO SCH (21:28)
[2017-04-04] MEDS: FAMOTIDINE 20 MG TAB PO SCH (21:29)
[2017-04-04] MEDS: FLUoxetine HCL 20 MG CAP PO SCH (21:29)
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
[2017-04-05] MEDS: ALBUTEROL INHALER 60 PUFF/8 GM INHALER INHALATION PRN ×2 (08:07→12:32)
[2017-04-05 09:31] LABS: Basophils % (A) 1 %; CH 30.4; CHCM 32.8; Eosinophils # (A) 0.3 k/uL (0-0.7); Eosinophils % (A) 4 %; HCT 44.7 % (34.0-46.0); HDW 1.94; HGB 14.6 gm/dL (11.4-16.0); Luc # (Auto) 0.09; Luc % (Auto) 2; Lymphocytes # (A) 2.1 k/uL (1.0-4.8); Lymphocytes % (A) 33 %; MCH 30.5 pg (25.0-35.0); MCHC 32.7 g/dL (31.0-37.0); Mean Platelet Volume 7.4; Monocytes # (A) 0.3 k/uL (0-1.0); Monocytes % (A) 5 %; Neutrophils # (A) 3.5 k/uL (1.3-7.7); Neutrophils % (A) 55 %; RDW 13.1 % (11.5-15.5); WBC 6.4 k/uL (3.8-10.6); WBC (Perox) 6.39
[2017-04-05] MEDS: FAMOTIDINE 20 MG TAB PO SCH ×2 (09:35→20:44)
[2017-04-05] MEDS: FLUoxetine HCL 20 MG CAP PO SCH (09:35)
[2017-04-05] MEDS: DOCUSATE 100 MG CAP PO SCH ×2 (09:35→20:45)
[2017-04-05 09:48] LABS: ALT 38 U/L (9-52); AST 28 U/L (14-36); Alkaline Phosphatase 45 U/L (38-126); Anion Gap 14 mmol/L; Blood Urea Nitrogen 19 mg/dL (7-17); Calcium 9.8 mg/dL (8.4-10.2); Carbon Dioxide 23 mmol/L (22-30); Chloride 105 mmol/L (98-107); Glucose 91 mg/dL (74-99); Non-African American GFR(MDRD) >60 (>60 ml/min/1.73 sqM); Potassium 4.6 mmol/L (3.5-5.1); Sodium 142 mmol/L (137-145); Total Bilirubin 0.8 mg/dL (0.2-1.3); Total Protein 7.3 g/dL (6.3-8.2)
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
[2017-04-05] MEDS: NICOTINE 21MG/24HR PATCH TRANSDERM SCH (12:08)
[2017-04-05] MEDS ORDERED: OLANZapine 10 MG TAB PO STA ×2 (13:37→20:52)
[2017-04-05] MEDS ORDERED: LORazepam 2 MG/ML SYRINGE IM STA ×2 (13:44→13:50)
--- NOTE | 2017-04-06 08:25 | PN ---
DATE OF SERVICE: 04/05/2017 CHIEF COMPLAINT: The patient was depressed. She had thoughts of suicide and had made some contacts on FaceBook about buying a gun. She has had ongoing problems with anxiety and anger. INTERVAL HISTORY: Patient has been doing fair. She had a quiet evening last night. She slept about 4 hours, which she says is her usual. Today she has been up and about. She says that she is hopeful to be discharged soon as she does not see much need for her to be on the psychiatric unit. She is willing to have her significant other to come in for a family meeting as part of planning discharge. She has had some anxiety though otherwise has been appropriate in her behavior. She comes out in the day area. She interacts with others. She has been compliant with treatment. She feels her mood has improved. She has a better outlook. She has not had change in her general health. She tolerates her psychotropic medications. MENTAL STATUS: Patient gave good eye contact. Psychomotor activity was restless. She answered questions with direct responses. Her thoughts were clear. She was somewhat spontaneous and interactive. Her affect was somewhat anxious, though overall she had a reasonable range of affect. Her mood quiet though she did not appear to be distressed. ASSESSMENT: I will continue the current diagnosis and treatment plan. Continue psychotropic medications the same. We will focus on setting up a family meeting with the patient and her significant other as part of planning towards discharge. We will continue to focus on stabilization and discharge planning.
[2017-04-06] MEDS: FAMOTIDINE 20 MG TAB PO SCH ×2 (09:49→21:28)
[2017-04-06] MEDS: NICOTINE 21MG/24HR PATCH TRANSDERM SCH (09:49)
[2017-04-06] MEDS: FLUoxetine HCL 20 MG CAP PO SCH (09:50)
[2017-04-06] MEDS: DOCUSATE 100 MG CAP PO SCH ×2 (09:50→21:28)
[2017-04-06] MEDS: OLANZapine 5 MG TAB PO SCH ×3 (12:42→21:28)
--- NOTE | 2017-04-06 18:03 | PN ---
DATE OF SERVICE: 04/06/2017 CHIEF COMPLAINT: The patient was depressed. She had thoughts of suicide and had made some contacts on FaceBook about buying a gun. She has had ongoing problems with anxiety and anger. INTERVAL HISTORY: It is noted that I saw the patient yesterday in the morning time and she was doing fairly well as per my documentation. She had a telephone call about 1:30 to the person she has been living with who she identifies as her significant other. During a phone call she became very agitated. She started yelling loudly, using profanity and crying in a very intense and loud way. Her voice could be heard throughout the unit. Staff had to turn phone off because of the scheduled group. The patient became very angry. She slammed the phone down. She hit the chair so that it landed upside down. She refused any support from staff. She received Zyprexa 10 mg. She had continued to be quite agitated. She demanded to go outside to smoke. She threatened to act out further. She then was given an IM injection of Ativan 2 mg. Security was called because the patient was not able to respond in any way to staff support. She was encouraged to use a quiet room. So that she could process her issues and calm her emotions. Security was required to help guide her to the quiet room. She was quite tremulous and shaky. Her thoughts were disorganized. She continued to yell. She gradually calm down to the point where she was able to go back to her room. She was left to have some quiet time which seemed to benefit her. She has been able to attend some groups though not others. It is noted that the basis for her distress was that apparently on the telephone the significant other said that she was ending their relationship and that the patient would not be able to return there to live. Patient had a lot of difficulty trying to manage her emotions in the face of the telephone conversation. She gradually was able to process some things about her situation. She apparently developed a plan where she would return to live with her mother. She was still pretty distressed about the issue with her significant other. There was not plan today for the other person to come in for a meeting at 1:00. The drug abuse social worker made contact with the other person and felt that such a meeting would not be productive. The other person herself was a very distressed on the telephone call. She did not provide any information that would be helpful to the patient in regards to treatment and discharge planning. The other person was clear that the relationship that they had was at an end and that the patient would not return to her house to live. It was not clear what the patient wished to do as far as any efforts towards reconciling with the other person. We had a meeting to outline the discharge plans. The patient became quite upset at the meeting. She again got quite loud. She was tremulous. She was intense. She kept reiterating that she was not getting any help, that she needed to be discharged. We discussed the range of options for the patient, though she was not able to process in any reasonable way. She kept interrupting and just demanded that she needed to leave. I ended the conversation with her as it was clear that at that point there was not much further that would be productive from the conversation. The patient has not had change in her general health. She appears to be tolerating her psychotropic medications. MENTAL STATUS: Patient was quite distressed and angry. She got very loud. She was tearful. She was disorganized in her thoughts. She was very tremulous. She had an intense affect. Her mood was dysphoric. She was severely distressed. ASSESSMENT: I will continue the current diagnosis and treatment plan. I indicated to the patient the options that we have in regards to her current situation. We discussed that the most immediate option would over the next 1 to 2 days for her discharge. If she is able to be relatively stable from an emotional standpoint. The plan would be to coordinate with her mother for living arrangement and continuing her on her current medication. The patient did indicate that she might consider signing a 3 day intent for AMA. I discussed the issues relating to that and the expectation that she would remain in the hospital during the 72 hour period. I also discussed that should she indicate that that she would not be stable for discharge and that there would be a risk to her health and safety with discharge that there would be an option for petition for involuntary hospitalization. The patient understands that she can work with the drug abuse social worker or other supports staff to process these issues, to help work on discharge plans. We will make a contact with the mother to be clear about discharge planning for her living situation. We will continue to focus on stabilization and discharge plan. I will start the patient on Zyprexa 5 mg 3 times a day and continue Prozac 20 mg a day. MTDD
[2017-04-07 06:25] VITALS: BP 110/58; PULSE 52; RESP 15; TEMP 97.9
[2017-04-07] MEDS: ALBUTEROL INHALER 60 PUFF/8 GM INHALER INHALATION PRN ×2 (08:21→12:36)
[2017-04-07] MEDS: FLUoxetine HCL 20 MG CAP PO SCH (09:06)
[2017-04-07] MEDS: OLANZapine 5 MG TAB PO SCH (09:06)
[2017-04-07] MEDS: DOCUSATE 100 MG CAP PO SCH (09:06)
[2017-04-07] MEDS: NICOTINE 21MG/24HR PATCH TRANSDERM SCH (09:06)
[2017-04-07] MEDS: FAMOTIDINE 20 MG TAB PO SCH (09:06)
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
== END 2017-04-07 14:18 | disposition home or self-care (01) | DRG 885 ==
LOC: EC 13:36 → 3MHU 15:22
PROVIDERS: ADMIT Psychiatry & Neurology Psychiatry; ATTEND Psychiatry & Neurology Psychiatry
DX: F33.2 Major depressive disorder, recurrent severe without psychotic features (principal); R45.851 Suicidal ideations; F12.10 Cannabis abuse, uncomplicated; F43.10 Post-traumatic stress disorder, unspecified; J45.909 Unspecified asthma, uncomplicated; F17.200 Nicotine dependence, unspecified, uncomplicated; Z90.49 Acquired absence of other specified parts of digestive tract; Z86.711 Personal history of pulmonary embolism; Z79.899 Other long term (current) drug therapy
CPT/HCPCS: 80053; 80306; 81025; 82075; 84443; 85025; 94640; 99285